=== PATIENT | male | born 1945 | race Caucasian/White ===

== ENCOUNTER 2025-01-18 13:59 | Emergency (ER) | payer MEDICARE ==
[~2025-01-18] VITALS: Ht 170.2 cm; Wt 77.1 kg
[2025-01-18] MEDS ORDERED: ONDANSETRON 4 MG/2 ML VIAL ONE (14:19)
[2025-01-18] MEDS ORDERED: HYDROMORPHONE 1 MG/1 ML DISP.SYRIN ONE (14:20)
[2025-01-18] MEDS: HYDROMORPHONE 1 MG/1 ML DISP.SYRIN IV ONE (14:32)
[2025-01-18] MEDS: ONDANSETRON 4 MG/2 ML VIAL IV ONE (14:32)
[2025-01-18] MEDS ORDERED: LORAZEPAM 2 MG/1 ML VIAL ONE (15:49)
[2025-01-18] MEDS: LORAZEPAM 2 MG/1 ML VIAL IV ONE (15:54)
[2025-01-18 16:00] VITALS: BP 131/75
[2025-01-18] MEDS ORDERED: HYDR-3972 PO (17:15)
[2025-01-18 18:33] VITALS: BP 129/71; O2SAT 99
== END 2025-01-18 18:31 | disposition home or self-care (01) ==
LOC: ER 13:59
DX: M23.8X1 Other internal derangements of right knee (principal); I10 Essential (primary) hypertension; M23.91 Unspecified internal derangement of right knee; G83.9 Paralytic syndrome, unspecified; Z88.7 Allergy status to serum and vaccine; Z99.3 Dependence on wheelchair
CPT/HCPCS: 29505; 73560; 73564; 96374; 96375; 99285; J1171; J2060; J2405; A4606; A4663